=== PATIENT | female | born 1990 | race Caucasian/White ===

== ENCOUNTER → 2019-09-03 | Day surgery (SDC) | payer BC, SELFPAY ==
[~2019-09-03] MED LIST: Betamet Acet/Betamet Na Ph 30 MG/5 ML VIAL ONE; Butorphanol Tartrate 1 MG/ML VIAL ONE; Morphine 4 MG/ML VIAL ONE; Promethazine HCl 25 MG/ML VIAL ONE
== END ==
LOC: L&D/OP 06:30
PROVIDERS: ATTEND Obstetrics & Gynecology
DX: O47.9 False labor, unspecified (principal); Z3A.00 Weeks of gestation of pregnancy not specified
CPT/HCPCS: J0595; J0702; J2270; J2550